=== PATIENT | female | born 1955 | race Asian ===

== ENCOUNTER 2023-10-26 08:59 | Observation (INO) | payer OTHER ==
[2023-10-26 09:12] VITALS: BMI 26.8
[2023-10-26 10:43] LABS: HEMATOCRIT 48.5 % (32.4-45.2); HEMOGLOBIN 15.9 G/dL (10.7-15.3); MCH 28.2 pg (25.7-33.7); MCHC 32.8 g/dl (32.0-36.0); MEAN CELL VOLUME 85.9 fl (80-96); MEAN PLT VOLUME 7.3 fl (7.5-11.1); PLATELET COUNT 255.5 10^3/uL (134-434); RBC 5.65 10^6/uL (3.60-5.2); RDW 15.1 % (11.6-15.6); WHITE BLOOD COUNT 3.9 10^3/uL (4.0-10.8)
[2023-10-26 10:50] LABS: PLATELET ESTIMATE ADEQUATE
[2023-10-26] MEDS: MECLIZINE HCL 25 MG TABLET (FP) PO ONE (10:50)
[2023-10-26] MEDS: METOCLOPRAMIDE HCL INJECTION 10 MG/2 ML VIAL IVPB ONE (10:50)
[2023-10-26] MEDS: SODIUM CHLORIDE 1,000 ML IV SCH (10:51)
[2023-10-26 10:53] LABS: INR 0.9 (0.83-1.09); PROTHROMBIN TIME (PATIENT) 10.5 SEC (9.7-13.0)
[2023-10-26 10:56] LABS: ACTIVATED PTT 31.8 SECONDS (25.2-36.5)
[2023-10-26 11:04] LABS: ALBUMIN 4.2 g/dl (3.4-5.0); BILIRUBIN,TOTAL 0.8 mg/dl (0.2-1); CALCIUM 9.4 mg/dl (8.5-10.1); CREATININE 0.6 mg/dl (0.6-1.3); MAGNESIUM 2.1 mg/dL (1.8-2.4); PHOSPHOROUS 3.4 (2.5-4.9); POTASSIUM 3.9 mmol/L (3.5-5.1); TOT PROT 6.8 g/dl (6.4-8.2)
[2023-10-26 11:31] LABS: CHOLESTEROL 224 mg/dL (50-200); HDL CHOLESTEROL 64 mg/dL (40-60); LDL CHOLESTEROL (ONLY DFH) 126 mg/dL (5-100)
[2023-10-26 12:36] LABS: EPITHELIAL CELLS 0-5 /hpf
[2023-10-26] MEDS ORDERED: ACETAMINOPHEN 325 MG TABLET (FP) PO PRN (13:29)
[2023-10-26] MEDS ORDERED: MECLIZINE HCL 25 MG TABLET (FP) PO PRN (13:30)
[2023-10-26] MEDS ORDERED: ATORVASTATIN CA 80 MG TABLET (FP) ONE (13:59)
[2023-10-26] MEDS ORDERED: ASPIRIN 81 MG CHEWABLE TABLETS ONE (14:00)
[2023-10-26] MEDS: ASPIRIN 81 MG CHEWABLE TABLETS PO ONE (14:02)
[2023-10-26] MEDS: ATORVASTATIN CA 80 MG TABLET (FP) PO ONE (14:02)
[2023-10-26 16:01] VITALS: RESP 18
[2023-10-27 09:15] VITALS: BP 136/72; PULSE 76; TEMP 98.6
== END 2023-10-27 11:59 | disposition home or self-care (01) ==
LOC: FER 08:59 → FM/S 14:01 → UNDOADMOB 14:01 → INTOOBSV 14:01
PROC: 3E033GC Introduction of Other Therapeutic Substance into Peripheral Vein, Percutaneous Approach (ICD-10-PCS; principal; 2023-10-26)
PROC: 3E0337Z Introduction of Electrolytic and Water Balance Substance into Peripheral Vein, Percutaneous Approach (ICD-10-PCS; 2023-10-26)
DX: I16.0 Hypertensive urgency (principal); R42 Dizziness and giddiness; Z90.49 Acquired absence of other specified parts of digestive tract; E03.9 Hypothyroidism, unspecified; E78.5 Hyperlipidemia, unspecified; Z85.850 Personal history of malignant neoplasm of thyroid; Z90.89 Acquired absence of other organs
CPT/HCPCS: 36415; 70450-TC; 70496-TC; 70498-TC; 70551-TC; 71045-TC-FY; 80053; 80061; 81003; 81015; 83036; 83735; 84100; 84439; 84443; 84484; 85027; 85610; 85730; 86850; 86900; 86901; 93005; 96361; 96374; 99285-25; G0378